=== PATIENT | female | born 1995 | race Caucasian/White ===

== ENCOUNTER 2016-07-31 14:01 | Emergency (ER) | payer BC ==
[~2016-07-31] VITALS: Ht 167.6 cm; Wt 71.9 kg
[2016-07-31 14:04] VITALS: TEMP 36.9; Ht 167.6 cm; Wt 71.9 kg
--- NOTE | 2016-07-31 14:31 | EMERGENCY ROOM VISIT NOTE ---
History Report prepared by Analiaibliu: Elis James Under the Supervision of: Dr. Tamiko Howell M.D. First contact with patient: 14:09 Chief Complaint: EYE ASSESSMENT Stated Complaint: LF EYE INJURY History of Present Illness The patient is a 20 year old female who presents to the Emergency Room via ambulance with complaints of an episode of vision loss that occurred about 30 minutes [employer]. The patient states that this morning while she was laying in bed, she reached over to get her phone and slipped out of her bed. She hit the left side of her face on the corner of her desk. Since then, she developed some bruising and swelling to the left periorbital area. She went to see at doctor at the [facility]. While two doctors were looking at her, her vision appeared black and grainy. She also became sweaty and clammy. Her symptoms lasted a short period of time. Currently, she has vision in both of her eyes. She feels that she may have just gotten overwhelmed while she was being evaluated. Denies loss of consciousness, although she said that it felt like she was going to pass out. She is on control pills. Denies chest pain , shortness of breath, or other complaints. Source of History: patient Onset: 30 minutes [employer] Position: other (vision) Quality: other (black and grainy vision) Timing: resolved Associated Symptoms: No LOC, No SOB, No chest pain Note: Other symptoms: left periorbital swelling/bruising Review of Systems See HPI for pertinent positives & negatives. A total of 10 systems reviewed and were otherwise negative. Past Medical & Surgical Medical Problems: (1) Periorbital hematoma of left eye Family History No pertinent family history stated. Social History Smoking Status: Never Smoker Marital Status: single Housing Status: lives with roommate Occupation Status: [employer] student Current/Historical Medications Scheduled Control Pills ( Control Pills), 1 TAB PO DAILY Spironolactone (Aldactone), 50 MG PO BID Allergies Coded Allergies: Penicillins (Unverified Allergy, Intermediate, HIVES, 07/31/16) Physical Exam Vital Signs Date Time Temp Pulse Resp B/P Pulse Ox O2 Delivery O2 Flow Rate FiO2 07/31/16 16:56 84 16 98/53 100 07/31/16 16:00 62 14 111/59 100 Room Air 07/31/16 14:04 36.9 71 18 120/62 98 Room Air Physical Exam Vital signs reviewed. General: Well-appearing 20 year old female, in no significant distress. HEENT: No scleral icterus, PERRLA. Left periorbital hematoma, no laceration or active bleeding, small left conjunctival hemorrhage, mild tenderness with no step off or deformity of maxilla. TMs are clear. Neck: Cervical spine is nontender. Cardiovascular: Regular rate and rhythm, no extra sounds. Pulmonary: Clear to auscultation bilaterally, normal work of breathing. Abdomen: Soft, nontender, nondistended, positive bowel sounds. Musculoskeletal: Atraumatic, no peripheral edema. Neurologic: Patient awake alert and oriented x 3, full strength in all 4 extremities. Cranial nerves 2 through 12 grossly intact. Skin: Warm, dry, no rash Medical Decision & Procedures ER Provider Diagnostic Interpretation: Radiology results as stated below per my review and radiologist interpretation: CT FACIAL BONES-MXILLOFAC WITHOUT CT DOSE: 838.26 mGy.cm CLINICAL HISTORY: Left-sided facial pain status post trauma COMPARISON STUDY: No previous studies for comparison. TECHNIQUE: Helical images were acquired in the transverse plane. The study was reviewed and analyzed on the independent 3-D workstation. The pterygoid plates appear intact. The zygomatic arches appear intact. The globes appear intact. There is no evidence of orbital emphysema. The orbital geller and floor appear intact. The mandibular condyles appear intact. There is left-sided periorbital and premaxillary edema. IMPRESSION: Left-sided facial edema. No fractures are visualized. Electronically signed by: Carmelo Chang M.D. 07/31/2016 4:35 PM Dictated Date/Time: 07/31/2016 4:[address]AST CT DOSE: HISTORY: Head injury. Syncope. TECHNIQUE: Multiaxial CT images of the head were performed without the use of intravenous contrast. Automated exposure control was utilized for this study. Comparison: None. Findings: The paranasal sinuses and mastoid air cells are clear. The calvarium and skull base are intact. The ventricles and sulci are within normal limits. There is no mass, hematoma, midline shift, or acute infarct. Impression: No acute intracranial abnormality. Electronically signed by: Roderick Peralta M.D. 07/31/2016 4:36 PM Dictated Date/Time: 07/31/2016 4:33 PM Laboratory Results 07/31/16 15:33 Red Blood Count 4.68, Mean Corpuscular Volume 88.2, Mean Corpuscular Hemoglobin 31.2, Mean Corpuscular Hemoglobin Concent 35.4, Mean Platelet Volume 9.7, Neutrophils (%) (Auto) 71.0, Lymphocytes (%) (Auto) 20.5, Monocytes (%) (Auto) 7.9, Eosinophils (%) (Auto) 0.2, Basophils (%) (Auto) 0.2, Neutrophils # (Auto) 6.17, Lymphocytes # (Auto) 1.78, Monocytes # (Auto) 0.69, Eosinophils # (Auto) 0.02, Basophils # (Auto) 0.02 07/31/16 15:33 Test 07/31/16 15:33 White Blood Count 8.70 K/uL (4.8-10.8) Red Blood Count 4.68 M/uL (4.2-5.4) Hemoglobin 14.6 g/dL (12.0-16.0) Hematocrit 41.3 % (37-47) Mean Corpuscular Volume 88.2 fL (80-100) Mean Corpuscular Hemoglobin 31.2 pg (25-34) Mean Corpuscular Hemoglobin Concent 35.4 g/dl (32-36) Platelet Count 217 K/uL (130-400) Mean Platelet Volume 9.7 fL (7.4-10.4) Neutrophils (%) (Auto) 71.0 % Lymphocytes (%) (Auto) 20.5 % Monocytes (%) (Auto) 7.9 % Eosinophils (%) (Auto) 0.2 % Basophils (%) (Auto) 0.2 % Neutrophils # (Auto) 6.17 K/uL (1.4-6.5) Lymphocytes # (Auto) 1.78 K/uL (1.2-3.4) Monocytes # (Auto) 0.69 K/uL (0.11-0.59) Eosinophils # (Auto) 0.02 K/uL (0-0.5) Basophils # (Auto) 0.02 K/uL (0-0.2) RDW Standard Deviation 41.3 fL (36.4-46.3) RDW Coefficient of Variation 12.9 % (11.5-14.5) Immature Granulocyte % (Auto) 0.2 % Immature Granulocyte # (Auto) 0.02 K/uL (0.00-0.02) Anion Gap 10.0 mmol/L (3-11) Est Creatinine Clear Calc Drug Dose 100.1 ml/min Estimated GFR () 105.3 Estimated GFR (Non- 90.8 BUN/Creatinine Ratio 11.2 (10-20) Calcium Level 8.8 mg/dl (8.5-10.1) Total Bilirubin 0.5 mg/dl (0.2-1) Direct Bilirubin 0.2 mg/dl (0-0.2) Aspartate Amino Transf (AST/SGOT) 23 U/L (15-37) Alanine Aminotransferase (ALT/SGPT) 30 U/L (12-78) Alkaline Phosphatase 49 U/L (45-117) Total Protein 8.1 gm/dl (6.4-8.2) Albumin 4.0 gm/dl (3.4-5.0) Laboratory results per my review. ECG Indication: other (vision loss) Rate (beats per minute): 66 Rhythm: normal sinus Findings: T-wave inversion (Anterior), no acute ischemic change ED Course 1418: The patient was evaluated in room A12A. A complete history and physical examination was performed. 1700: Upon reevaluation, the patient was resting comfortably. I discussed findings with the patient. She verbalized agreement of the treatment plan. The patient was discharged home. Medical Decision Differential includes but is not limited to facial trauma, intracranial hemorrhage, vasovagal syncope, orthostasis, cardiac arrhythmia, anxiety. This patient was evaluated and appeared to be in no significant distress. IV access was obtained and laboratory work was drawn. The patient was placed on the night monitor. EKG reveals normal sinus rhythm without ectopy or ischemia. CT scan of the head and face was performed and reveals no evidence of acute intracranial hemorrhage or evidence of facial fracture. Laboratory work is unrevealing. I suspect the patient had a vasovagal episode in the doctor's office. At this time the patient is feeling well. She will be discharged in care of her aunt. I did discuss the case with her father. Patient will be followed up [facility] later in the week. She will return to the ER for worsening of symptoms or any medical concerns. Impression Primary Impression: Periorbital hematoma of left eye Additional Impression: Vasovagal near-syncope Scribe Attestation The scribe's documentation has been prepared under my direction and personally reviewed by me in its entirety. I confirm that the note above accurately reflects all work, treatment, procedures, and medical decision making performed by me. Departure Information Dispostion Home / Self-Care Referrals [facility] Patient Instructions My [facility] Additional Instructions Diagnosis: Left periorbital hematoma, near-syncope Drink plenty of clear fluids. Ice to the left eye intermittently for the next 24 hours. Tylenol 650 mg every 6 hours as needed for pain. Follow-up with your physician for reevaluation this week. Return to the ER for worsening of symptoms or any medical concerns. Problem Qualifiers
[2016-07-31 15:52] LABS: BASO % 0.2 %; BASO ABS # 0.02 K/uL (0-0.2); COMPLETE YES; EOS % 0.2 %; HEMATOCRIT 41.3 % (37-47); IG% 0.2 %; LYMPH % 20.5 %; LYMPH ABS # 1.78 K/uL (1.2-3.4); MEAN CELL VOLUME 88.2 fL (80-100); MEAN CORPUSCULAR HEMOGLOBIN 31.2 pg (25-34); MEAN CORPUSCULAR HGB CONC 35.4 g/dl (32-36); MEAN PLATELET VOLUME 9.7 fL (7.4-10.4); MONO % 7.9 %; PLATELET COUNT 217 K/uL (130-400); RED BLOOD COUNT 4.68 M/uL (4.2-5.4)
[2016-07-31] MEDS ORDERED: SPIR50TA2 PO (15:55)
[2016-07-31] MEDS ORDERED: BCPILLS PO (15:55)
[2016-07-31 16:10] LABS: BUN/CREATININE RATIO 11.2 (10-20); CALCIUM 8.8 mg/dl (8.5-10.1); CREATININE 0.91 mg/dl (0.60-1.20); POTASSIUM 3.9 mmol/L (3.5-5.1)
--- NOTE | 2016-07-31 16:38 | DIAGNOSTIC IMAGING REPORT ---
CT FACIAL BONES-MXILLOFAC WITHOUT CT DOSE: 838.26 mGy.cm CLINICAL HISTORY: Left-sided facial pain status post trauma COMPARISON STUDY: No previous studies for comparison. TECHNIQUE: Helical images were acquired in the transverse plane. The study was reviewed and analyzed on the independent 3-D workstation. The pterygoid plates appear intact. The zygomatic arches appear intact. The globes appear intact. There is no evidence of orbital emphysema. The orbital geller and floor appear intact. The mandibular condyles appear intact. There is left-sided periorbital and premaxillary edema. IMPRESSION: Left-sided facial edema. No fractures are visualized. Electronically signed by: Carmelo Chang M.D. 07/31/2016 4:35 PM Dictated Date/Time: 07/31/2016 4:34 PM
--- NOTE | 2016-07-31 16:38 | DIAGNOSTIC IMAGING REPORT ---
HEAD CT NONCONTRAST CT DOSE: HISTORY: Head injury. Syncope. TECHNIQUE: Multiaxial CT images of the head were performed without the use of intravenous contrast. Automated exposure control was utilized for this study. Comparison: None. Findings: The paranasal sinuses and mastoid air cells are clear. The calvarium and skull base are intact. The ventricles and sulci are within normal limits. There is no mass, hematoma, midline shift, or acute infarct. Impression: No acute intracranial abnormality. Electronically signed by: Roderick Peralta M.D. 07/31/2016 4:36 PM Dictated Date/Time: 07/31/2016 4:33 PM
[2016-07-31 16:56] VITALS: BP 98/53; PULSE 84; O2SAT 100
== END 2016-07-31 17:24 | disposition home or self-care (01) ==
LOC: EDBD 14:01 → C.EDA 14:03
DX: S00.12XA Contusion of left eyelid and periocular area, initial encounter (principal); R55 Syncope and collapse; W22.8XXA Striking against or struck by other objects, initial encounter